=== PATIENT | male | born 1945 | race Hispanic/Latino ===

== ENCOUNTER 2017-05-20 12:01 | Day surgery (SDC) | payer MEDICARE ==
[~2017-05-20 12:01] MED LIST: IOPIDINE ONE; MYDRIACYL ONE; NEOFRIN ONE
[2017-05-20] MEDS ORDERED: IOPIDINE OD ONE (12:12)
[2017-05-20] MEDS ORDERED: NEOFRIN OD ONE (12:12)
[2017-05-20] MEDS ORDERED: MYDRIACYL OD ONE (12:12)
[2017-05-20 13:11] VITALS: BP 168/77
== END 2017-05-20 12:02 | disposition home or self-care (01) ==
LOC: OR 12:01
PROVIDERS: ATTEND Specialist
DX: H26.491 Other secondary cataract, right eye (principal); I10 Essential (primary) hypertension; E78.00 Pure hypercholesterolemia, unspecified; K21.9 Gastro-esophageal reflux disease without esophagitis; F17.210 Nicotine dependence, cigarettes, uncomplicated; Z95.2 Presence of prosthetic heart valve; Z98.890 Other specified postprocedural states

== ENCOUNTER 2018-12-22 11:34 | Day surgery (SDC) | payer MEDICARE ==
[2018-12-22] MEDS ORDERED: IOPIDINE OS ONE (11:54)
[2018-12-22] MEDS ORDERED: NEOFRIN OS ONE (11:55)
[2018-12-22] MEDS ORDERED: MYDRIACYL OS ONE (11:56)
[2018-12-22 15:09] VITALS: BP 140/49
== END 2018-12-22 14:36 | disposition home or self-care (01) ==
LOC: OR 11:34
PROVIDERS: ATTEND Specialist
DX: H26.492 Other secondary cataract, left eye (principal); H40.9 Unspecified glaucoma; E78.00 Pure hypercholesterolemia, unspecified; F17.210 Nicotine dependence, cigarettes, uncomplicated; I10 Essential (primary) hypertension; M19.90 Unspecified osteoarthritis, unspecified site; K21.9 Gastro-esophageal reflux disease without esophagitis; Z79.899 Other long term (current) drug therapy; Z79.01 Long term (current) use of anticoagulants; Z98.41 Cataract extraction status, right eye; Z98.42 Cataract extraction status, left eye; Z98.890 Other specified postprocedural states; Z86.2 Personal history of diseases of the blood and blood-forming organs and certain disorders involving the immune mechanism